=== PATIENT | female | born 1990 | race Two or more races ===

== ENCOUNTER 2022-11-22 18:05 | Emergency (ER) | payer OTHER ==
[~2022-11-22] VITALS: Ht 170.2 cm; Wt 108.9 kg
== END 2022-11-23 07:38 | disposition left against medical advice (07) ==
LOC: ER 18:05 → O/R 11-23 06:45 → ER 11-23 06:45 → O/R 11-23 07:38 → ER 11-23 07:38
DX: R10.2 Pelvic and perineal pain (principal); N83.512 Torsion of left ovary and ovarian pedicle; Z20.822 Contact with and (suspected) exposure to COVID-19